=== PATIENT | male | born 1960 | race Caucasian/White ===

== ENCOUNTER 2018-12-15 11:00 | Day surgery (SDC) | payer BC, SELFPAY ==
--- NOTE | 2018-12-10 08:13 | EKG12_ITS ---
Test Reason : POST OP Blood Pressure : / mmHG Vent. Rate : 075 BPM Atrial Rate : 075 BPM P-R Int : 164 ms QRS Dur : 110 ms QT Int : 382 ms P-R-T Axes : 051 -09 019 degrees QTc Int : 426 ms Sinus rhythm with occasional Premature ventricular complexes Confirmed by GERMAIN NICHOLSON, SHAVON ([id number]), broach setter EZIO VARGAS ([id number]) on 12/18/2018 8:51:08 AM Referred By: Ofe Garsia Confirmed By:SHAVON GROVES MD
[2018-12-10 09:07] LABS: Anion Gap 5 (5-15); BUN 21 mg/dL (7-18); BUN/Creat Ratio 21.9 RATIO (10-20); Calcium,Total 8.6 mg/dL (8.5-10.1); Chloride 105 mmol/L (98-107); Creatinine, Serum 0.96 mg/dL (0.70-1.30); EST Glomerular Filtration Rate 85 mL/min (>60); Est Glom Filt Rate - Afr Amer 103 mL/min (>60); Glucose 143 mg/dL (74-106); Potassium 4.3 mmol/L (3.5-5.1); Sodium Level 137 mmol/L (136-145)
--- NOTE | 2018-12-15 10:36 | PCM.HP.BLA ---
History and Physical Date of Admission: 12/15/18 Roby Franklin 1960 CHIEF COMPLAINT: Umbilical Hernia Repair HPI: The patient is a 58 year old male presents with umbilical hernia. Has noted for years. Lately in the past few weeks, he has noted twinges of pain. Denies episode of incarceration. Denies previous hernia surgery. Denies GI/ obstructive symptoms. PAST MEDICAL HISTORY ? Diabetes (HCC) 10/26/20142013, prediabetic prior to that. ? Hypercholesterolemia Gets labs done through work ? PLANTAR Fasciitis ? Seborrheic dermatitis 10/11/2009 PAST SURGICAL HISTORY ? COLONOSCOP W/ OR W/O BRSH SPEC 04/18/15 Current Outpatient Prescriptions: sildenafil (REVATIO) 20 mg tablet Take 2-3 tablets by mouth once daily as needed. simvastatin (ZOCOR) 20 mg tablet take 1 tablet by mouth at bedtime metFORMIN (GLUCOPHAGE) 1,000 mg tablet take 1 tablet by mouth twice a day with food blood sugar diagnostic (i2i LogicTOUCH ULTRA TEST) test strip Test blood sugar(s) 1x daily. Dx: 250.00. Insulin: No aspirin, enteric coated (ASPIRIN, ENTERIC COATED) 81 mg EC tablet Take 1 tablet by mouth once daily. Lancets (ONE TOUCH DELICA) lancets Test blood sugar(s) 1x daily. Dx: 250.02. Insulin: No triamcinolone acetonide 0.1 % cream Apply 1 application to affected area once daily. Apply sparingly to area for rash/itching. ketoconazole 2 % TOPICAL shampoo Apply to affected area. Apply lather to affected skin for 2 to 3 minutes daily as needed. (1 bottle, not 1 ml) ALLERGIES: Patient has no known allergies. PERSONAL HISTORY: Social History Marital status: Social History Main Topics Smoking status: Never Smoker Smokeless tobacco: Never Used Alcohol use: Yes Comment: 2 beers a week FAMILY HISTORY ? Diabetes Mother ? Heart Father mi, angioplasty ? other (hnp neck [Other]) Sister ? Diabetes Brother NH, Stents placed 2010 ? Coronary Artery Disease Brother same as one with DM ? Hypertension Father same as brother with DM and CAD ? other (prostate cancer [Other]) Father 78+/- REVIEW OF SYSTEMS: General - denies fevers Cardiovascular - denies chest pain Pulmonary - denies coughing up blood Gastrointestinal - see above, denies hematemesis Neurological - denies seizures Genitourinary - denies blood in urine Hematological - denies spontaneous/prolonged bleeding Skin - denies nonhealing skin wounds Musculoskeletal - denies chronic joint/back pain Endocrine - has diabetes Psychological ? denies hallucinations PHYSICAL EXAMINATION: General: The patient is 58 year old male, well nourished, well hydrated in no acute distress. The patient is oriented to time, place, and person. VITALS: Blood pressure 130/78, pulse 72, weight 104.3 kg (230 lb). Ht: 5' 9.5 Body mass index is 32.54 kg/m?. Head ? Normocephalic. EOM intact with sclera clear and no icterus noted. Wearing glasses. Mouth with mucus membranes moist. Neck - supple with no jugular venous distention noted. Trachea is midline. No masses noted. Lungs ? clear to auscultation. Normal breath sounds. No rales/rhonchi/wheezing noted. No labored breathing noted, such as retractions. Heart ? normal S1 and S2 auscultated. No rubs/clicks/murmurs noted. Regular rate. Abdomen ? soft and benign. Rectus diastasis present, small reducible umbilical hernia present. Normal bowel sounds. No abdominal bruits noted. Extremities ? no calf tenderness noted. No pitting edema noted. Skin ? normal skin integrity. Neurological ? gait normal, no focal deficits noted. Psych ? calm and appropriate IMPRESSION: umbilical hernia - symptomatic PLAN: I have discussed the above with the patient. I have offered umbilical hernia repair, possible use of mesh I have explained the procedure to the patient. I have counseled the patient as to the risks of the procedure, including but not limited to: infection, bleeding, injury to any blood vessels/nerves, scar tissue, injury to bowel/bladder, intraabdominal abscess/bleeding, recurrence of hernia, wound infections, complications of anesthesia, etc. ? the patient understands. The patient wishes to proceed. I have answered all questions to the patient?s satisfaction and the patient has no further questions. . Diagnoses: (K42.9) Umbilical hernia without obstruction or gangrene (primary encounter diagnosis) (E66.09, Z68.32) Class 1 obesity due to excess calories without serious comorbidity with body mass index (BMI) of 32.0 to 32.9 in adult Return to Clinic: The patient is instructed to follow-up with me after the procedure and as per needed.
[2018-12-15 11:36] VITALS: BP 143/83; PULSE 65; RESP 16; TEMP 36.6; O2SAT 93; BMI 33.5
[2018-12-15 12:01] LABS: Bedside Glucose 143 mg/dL (70-110)
[2018-12-15] MEDS: Cefazolin 2 GM in 0.9% Normal Saline 100 ML IV (12:35)
--- NOTE | 2018-12-15 12:44 | OP.PN_ITS ---
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
--- NOTE | 2018-12-15 13:09 | PCM.OPRPT ---
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 Appropriate time out protocol was followed. He was then placed in the supine position. The patient was then placed under anesthesia. The abdomen was then prepped with a sterile surgical skin preparation. Sterile surgical drapes were placed. This skin and subcutaneous tissues were then widely infiltrated with the local anesthetic. A skin incision was then made with a 15 blade scalpel inferior to the umbilical dimple in a curvilinear fashion. It was carried down to the subcutaneous tissues using sharp dissection. Any hemorrhage was adequately controlled with electrocautery. Blunt dissection was done to separate the subcutaneous tissues from the umbilical hernia sac. The sac once freed of the subcutaneous tissues was then freed from the undersurface of the dermis of the umbilical skin. The sac was then freed up from the fascial surface. The fascial defect was then properly outlined. The fascial defect was then closed transversely with interrupted 0 prolene suture in an interrupted fashion. Hemostasis was controlled with electrocautery. The subdermis was reapproximated with interrupted 3-0 vicryl sutures. The skin incision was reapproximated with a running 4-0 Monocryl suture. Cavilon and steristrips were placed to reinforce the skin closure and a sterile opsite dressing was applied. The patient was brought from to the Recovery Room in stable condition. - Complications none noted - Admit VTE Documentation VTE Present on Admission: Yes VTE Mechan Device Prophylaxis: SCD's
--- NOTE | 2018-12-15 13:18 | PCM.DC.HER ---
Discharge Diet: No Restrictions Discharge Activity: Return to Normal Activity, May not drive while taking narcotic pain medications. Lifting Restrictions: no lifting/pushing/pulling greater than 20 pounds for 6 weeks Call your doctor if your incision/area has: Continuous Slow Oozing, Foul Smelling Discharge Call your doctor if you observe: Fever of 101 or Higher Additional Dressing/Incision Instructions:: Leave dressing in place. May get wet in the shower - do not scrub in area. Do not soak - no tub baths/swimming Additional Instructions: Recommended pain medication regimen - may take 600 mg ibuprofen then in three hours take 650 mg acetaminophen, then in three hours take 600 mg of ibuprofen, etc. for 2-3 days take narcotic pain medication for breakthrough pain and at night to help you sleep Allergies/Adverse Reactions: Allergies No Known Allergies Allergy (Verified 12/08/18 15:33) Medications to take at Discharge Aspirin [Children's Aspirin] 81 mg PO DAILY 12/08/18 Minocycline HCl [Minocin] 50 mg PO PRN PRN 12/08/18 RX: Metformin HCl 1,000 mg PO BID 12/08/18 Simvastatin [Zocor] 20 mg PO QHS 12/08/18 Oxycodone [Oxyir] 5 mg PO Q8H PRN PRN 5 Days #15 tab 12/15/18 The following prescriptions were given: Oxycodone [Oxyir] 5 mg PO Q8H PRN PRN 5 Days #15 tab PRN Reason: Mod-Severe Pain (4-10/10) Primary Care Physician: Peggy Arnett MD [Primary Care Provider] - Test Results: Test results from this visit will be discussed in further detail at your follow-up appointment, if applicable. Please Follow Up With: Ofe Garsia MD - call When: to be seen in 7-10 days, please call for date and time, thank you
[2018-12-15 13:20] VITALS: BP 128/84; BP 143/83; PULSE 78; RESP 16; TEMP 36.4; O2SAT 95
--- NOTE | 2018-12-15 13:21 | DCINST_ITS ---
Discharge Diet: No Restrictions Discharge Activity: Return to Normal Activity, May not drive while taking narcotic pain medications. Lifting Restrictions: no lifting/pushing/pulling greater than 20 pounds for 6 weeks Call your doctor if your incision/area has: Continuous Slow Oozing, Foul Smelling Discharge Call your doctor if you observe: Fever of 101 or Higher Additional Dressing/Incision Instructions:: Leave dressing in place. May get wet in the shower - do not scrub in area. Do not soak - no tub baths/swimming Additional Instructions: Recommended pain medication regimen - may take 600 mg ibuprofen then in three hours take 650 mg acetaminophen, then in three hours take 600 mg of ibuprofen, etc. for 2-3 days take narcotic pain medication for breakthrough pain and at night to help you sleep Allergies/Adverse Reactions: Allergies No Known Allergies Allergy (Verified 12/08/18 15:33) Medications to take at Discharge Aspirin [Children's Aspirin] 81 mg PO DAILY 12/08/18 Minocycline HCl [Minocin] 50 mg PO PRN PRN 12/08/18 RX: Metformin HCl 1,000 mg PO BID 12/08/18 Simvastatin [Zocor] 20 mg PO QHS 12/08/18 Oxycodone [Oxyir] 5 mg PO Q8H PRN PRN 5 Days #15 tab 12/15/18 The following prescriptions were given: Oxycodone [Oxyir] 5 mg PO Q8H PRN PRN 5 Days #15 tab PRN Reason: Mod-Severe Pain (4-10/10) Primary Care Physician: Peggy Arnett MD [Primary Care Provider] - Test Results: Test results from this visit will be discussed in further detail at your follow- up appointment, if applicable. Please Follow Up With: Ofe Garsia MD - call When: to be seen in 7-10 days, please call for date and time, thank you
[2018-12-15 13:25] VITALS: BP 126/98; BP 143/83; PULSE 78; RESP 16; O2SAT 96
[2018-12-15 13:30] VITALS: BP 141/93; BP 143/83; PULSE 76; RESP 16; O2SAT 96
[2018-12-15 13:35] VITALS: BP 132/98; BP 143/83; PULSE 76; RESP 16; TEMP 36.6; O2SAT 97
[2018-12-15] MEDS: oxyCODONE 5 MG Tablet PO (14:10)
[2018-12-15 15:13] VITALS: BP 143/83
--- OUTSIDE RECORDS SUMMARY | 2019-02-11 02:54 | XMS RPT_ITS ---
:1960 Author Organization OH[facility] Care Team Providers Name Role Phone DANIEL ARNETT Referring Unavailable DANIEL ARNETT Attending Unavailable DANIEL ARNETT Referring Unavailable DANIEL ARNETT Attending Unavailable OFE GARSIA Attending Unavailable OFE GARSIA Referring Unavailable Ofe Garsia Attending Unavailable Ofe Garsia Referring Unavailable Daniel Arnett Primary Care Unavailable PROBLEMS PROBLEMS DATE TYPE CONDITION / CODE ATTENDING STATUS SOURCE 02/03/2016 Active Hyperlipidemia, NA Active [facility] unspecified / [place] E78.5(ICD-10) Repository 03/15/2018 Active Type 2 diabetes NA Active [facility] mellitus without [place] complications / Repository E11.9(ICD-10) PROCEDURES PROCEDURES No Procedure Records FoundRESULTS RESULTS BASIC METABOLIC Collected: 12/10/2018 Status: F Source: ROBBIE PROFILE (BMP) 8:16 AM [facility] REPOSITORY Order Comment: Reason for Laboratory Test PREOP TYPE CODE TESTS RESULT OUT OF RANGE REFERENCE UNITS LAB L501.0100 74-106 mg/dL High GLU 143 Result Comment: Fasting Glucose result greater than or equal to 126 mg/dL suggests DIABETES MELLITUS per A.D.A. criteria. Please note revised GLUCOSE reference range effective 2017. LAB L501.1000 7-18 mg/dL High BUN 21 LAB L501.1100 0.70-1.30 mg/dL Normal CREAT,SERUM 0.96 Result Comment: The validity of the calculated GFR AND GFRAA in patients over 70 years has not been determined. Clinical correlation is essential. LAB L501.1110 >60 mL/min Normal EST GFR 85 Result Comment: Non- GFR Calc LAB L501.1115 >60 mL/min Normal EST GFR - AA 103 Result Comment: GFR Calc LAB L501.1300 10-20 RATIO High BUN/CRE 21.9 LAB L501.2200 8.5-10.1 mg/dL CA Normal 8.6 LAB L501.5300 136-145 mmol/L NA Normal 137 LAB L501.5600 3.5-5.1 mmol/L K Normal 4.3 LAB L501.5900 98-107 mmol/L CL Normal 105 LAB L501.6100 21.0-32.0 mmol/L Normal CO2 27.0 LAB L501.6200 5-15 Normal GAP 5 Performed By: #### L500.2500 #### [facility] [address] [place], [address] OBSOLETE Observed: 12/05/2018 Status: COMPLETED Source: [place] 12:00 AM [facility] REPOSITORY Refill (INTMWS) ALECIA FRANKLIN ([id number]) 1960 M Date Time Provider Department 12/05/18 DANIEL ARNETT INTMWS During your visit today, we recorded the following information about you: Reggie Borja RN 12/05/2018 1:00 PM Signed Patient has been identified by name and date of : Yes Pharmacy phones for refill(s): Pending Prescriptions Disp Refills METFORMIN 1,000 MG TABLET 180 tablet 3 Sig: Take 1 tablet by mouth twice daily with meals. REYES: No Date of last office visit with pcp: 09-23-18. Next appt; 06-15-19 Last 2 Encounter Wt Readings: Date: Wt: 10/06/2018 104.3 kg (230 lb) 09/23/2018 103.4 kg (228 lb) Previous labs/tests for medication: Diabetes: Hemoglobin A1C (%) Date Value 09/20/2018 7.1 03/15/2018 6.7 Please advise. Thank you. Reggie Arnett MD 12/06/2018 12:16 PM Signed ok Allergies As of Date: 12/05/2018 (No Known Allergies) Date Reviewed: 10/10/2018 Reviewed by: Ofe Garsia - Fully Assessed Reason for Visit: Refill Request [94] Order(s):metFORMIN (GLUCOPHAGE) 1,000 mg tabletTake 1 tablet by mouth twice daily with meals.Disp: 180 tabletRfl: 3 Prescriptions as of 12/05/2018 Sig: METFORMIN 1,000 MG TABLET Take 1 tablet by mouth twice * SILDENAFIL (ANTIHYPERTENSIVE)* Take 2-3 tablets by mouth onc* SIMVASTATIN 20 MG TABLET take 1 tablet by mouth at bed* BLOOD SUGAR DIAGNOSTIC STRIPS Test blood sugar(s) 1x daily.* ASPIRIN 81 MG TABLET,DELAYED * Take 1 tablet by mouth once d* LANCETS Test blood sugar(s) 1x daily.* TRIAMCINOLONE ACETONIDE 0.1 %* Apply 1 application to affect* * KETOCONAZOLE 2 % SHAMPOO Apply to affected area. Appl* Problem List As Of Date 12/05/2018 Noted Resolved CALCANEAL SPUR [M77.30] INVALID FOR* Seborrheic Dermatitis [L21.9] INVALID FOR* Diabetes (HCC) [E11.9] INVALID FOR* More... Hyperlipidemia with target LDL less than 70 [E7*INVALID FOR* More... Prehypertension [R03.0] INVALID FOR* More... Obesity (BMI 30-39.9) [E66.9] INVALID FOR* More... Erectile dysfunction [N52.9] INVALID FOR* Prescriptions ordered this encounter Disp Refills Start End METFORMIN 1,000 MG TABLET 180 * 3 12/06/2018 Route: ORAL Sig: Take 1 tablet by mouth twice daily with meals. Medications Discontinued During This Encounter metFORMIN (GLUCOPHAGE) 1,000 mg tabl* 180 * 3 12/10/2017 12/06/2018 Sig: take 1 tablet by mouth twice a day with food Disc: Reason for discontinue is not on file. Encounter Status:Closed by DANIEL ARNETT MD on 12/06/18 CNCO Observed: 11/25/2018 Status: COMPLETED Source: [place] 12:00 AM [facility] REPOSITORY Letter Text Alecia Franklin [address] [facility] [address] 11/25/2018 F #: [id number] Dear , Due to a change in the provider's schedule it has been necessary to reschedule your Appointment. Your original appointment was scheduled for 04/03/19 at 8 AM with Daniel Arnett M.D. Your new appointment is now scheduled on 06/15/19 at 220 PM with Daniel Arnett M.D. If this new appointment is not convenient for you, please contact our office at [phone]. Thank you for choosing the [facility] as your Healthcare Provider . Sincerely, Internal Medicine Appointment Office PROGRESS Observed: 10/06/2018 Status: COMPLETED Source: [place] 4:51 PM [facility] REPOSITORY HNO ID: [id number] Author: Ofe Garsia Service: (none) Author Type: Physician Type: Progress Notes Filed: 10/10/2018 12:19 PM Note Text: Alecia Lu Tr 1960 REFERRING PHYSICIAN: Ofe Garsia MD CHIEF COMPLAINT: Umbilical Hernia Repair-2 HPI: The patient is a 58 year old male presents with umbilical hernia. Has noted for years. Lately in the past few weeks, he has noted twinges of pain. Denies episode of incarceration. Denies previous hernia surgery. Denies GI/ obstructive symptoms. PAST MEDICAL HISTORY Diagnosis Date - Diabetes (HCC) 10/26/20142013, prediabetic prior to that. - Hypercholesterolemia Gets labs done through work - PLANTAR Fasciitis - Seborrheic dermatitis 10/11/2009 PAST SURGICAL HISTORY Procedure Laterality Date - COLONOSCOP W/ OR W/O [facility] SPEC 04/18/15 Colonoscopy - NONE Current Outpatient Prescriptions: sildenafil (REVATIO) 20 mg tablet Take 2-3 tablets by mouth once daily as needed. simvastatin (ZOCOR) 20 mg tablet take 1 tablet by mouth at bedtime metFORMIN (GLUCOPHAGE) 1,000 mg tablet take 1 tablet by mouth twice a day with food blood sugar diagnostic (AuthyTOUCH ULTRA TEST) test strip Test blood sugar(s) 1x daily. Dx: 250.00. Insulin: No aspirin, enteric coated (ASPIRIN, ENTERIC COATED) 81 mg EC tablet Take 1 tablet by mouth once daily. Lancets (ONE TOUCH DELICA) lancets Test blood sugar(s) 1x daily. Dx: 250.02. Insulin: No triamcinolone acetonide 0.1 % cream Apply 1 application to affected area once daily. Apply sparingly to area for rash/itching. ketoconazole 2 % TOPICAL shampoo Apply to affected area. Apply lather to affected skin for 2 to 3 minutes daily as needed. (1 bottle, not 1 ml) ALLERGIES: Patient has no known allergies. PERSONAL HISTORY: Social History Marital status: Social History Main Topics Smoking status: Never Smoker Smokeless tobacco: Never Used Alcohol use: Yes Comment: 2 beers a week FAMILY HISTORY Problem Relation Age of Onset - Diabetes Mother - Heart Father mi, angioplasty - other (hnp neck [Other]) Sister - Diabetes Brother [place], Stents placed 2010 - Coronary Artery Disease Brother same as one with DM - Hypertension Father same as brother with DM and CAD - other (prostate cancer [Other]) Father 78+/- REVIEW OF SYSTEMS: General - denies fevers Cardiovascular - denies chest pain Pulmonary - denies coughing up blood Gastrointestinal - see above, denies hematemesis Neurological - denies seizures Genitourinary - denies blood in urine Hematological - denies spontaneous/prolonged bleeding Skin - denies nonhealing skin wounds Musculoskeletal - denies chronic joint/back pain Endocrine - has diabetes Psychological ? denies hallucinations PHYSICAL EXAMINATION: General: The patient is 58 year old male, well nourished, well hydrated in no acute distress. The patient is oriented to time, place, and person. VITALS: Blood pressure 130/78, pulse 72, weight 104.3 kg (230 lb). Ht: 5' 9.5 Body mass index is 32.54 kg/m?. Head ? Normocephalic. EOM intact with sclera clear and no icterus noted. Wearing glasses. Mouth with mucus membranes moist. Neck - supple with no jugular venous distention noted. Trachea is midline. No masses noted. Lungs ? clear to auscultation. Normal breath sounds. No rales/rhonchi/wheezing noted. No labored breathing noted, such as retractions. Heart ? normal S1 and S2 auscultated. No rubs/clicks/murmurs noted. Regular rate. Abdomen ? soft and benign. Rectus diastasis present, small reducible umbilical hernia present. Normal bowel sounds. No abdominal bruits noted. Extremities ? no calf tenderness noted. No pitting edema noted. Skin ? normal skin integrity. Neurological ? gait normal, no focal deficits noted. Psych ? calm and appropriate Assessment IMPRESSION: umbilical hernia - symptomatic PLAN: I have discussed the above with the patient. I have offered umbilical hernia repair, possible use of mesh I have explained the procedure to the patient. I have counseled the patient as to the risks of the procedure, including but not limited to: infection, bleeding, injury to any blood vessels/nerves, scar tissue, injury to bowel/bladder, intraabdominal abscess/bleeding, recurrence of hernia, wound infections, complications of anesthesia, etc. ? the patient understands. The patient wishes to proceed. He wishes for surgery to be done at [facility]. Wants surgery in mid Nov 2018. I have answered all questions to the patient?s satisfaction and the patient has no further questions. . Diagnoses: (K42.9) Umbilical hernia without obstruction or gangrene (primary encounter diagnosis) (E66.09, Z68.32) Class 1 obesity due to excess calories without serious comorbidity with body mass index (BMI) of 32.0 to 32.9 in adult Return to Clinic: The patient is instructed to follow-up with me after the procedure and as per needed. Ofe Garsia MD CNOV Observed: 10/06/2018 Status: COMPLETED Source: [place] 3:10 PM [facility] REPOSITORY Office Visit (ISACS) ALECIA FRANKLIN ([id number]) 1960 M Date Time Provider Department 10/06/18 3:10 PM OFE GARSIA During your visit today, we recorded the following information about you: Pulse Blood pressure Weight 72/minute 130/78 104.3 kg Ofe Garsia MD 10/10/2018 12:19 PM Signed Alecia Franklin 1960 REFERRING PHYSICIAN: Ofe Garsia MD CHIEF COMPLAINT: Umbilical Hernia Repair-2 HPI: The patient is a 58 year old male presents with umbilical hernia. Has noted for years. Lately in the past few weeks, he has noted twinges of pain. Denies episode of incarceration. Denies previous hernia surgery. Denies GI/ obstructive symptoms. PAST MEDICAL HISTORY Diagnosis Date - Diabetes (HCC) 10/26/20142013, prediabetic prior to that. - Hypercholesterolemia Gets labs done through work - PLANTAR Fasciitis - Seborrheic dermatitis 10/11/2009 PAST SURGICAL HISTORY Procedure Laterality Date - COLONOSCOP W/ OR W/O [facility] SPEC 04/18/15 Colonoscopy - NONE Current Outpatient Prescriptions: sildenafil (REVATIO) 20 mg tablet Take 2-3 tablets by mouth once daily as needed. simvastatin (ZOCOR) 20 mg tablet take 1 tablet by mouth at bedtime metFORMIN (GLUCOPHAGE) 1,000 mg tablet take 1 tablet by mouth twice a day with food blood sugar diagnostic (ONETOUCH ULTRA TEST) test strip Test blood sugar(s) 1x daily. Dx: 250.00. Insulin: No aspirin, enteric coated (ASPIRIN, ENTERIC COATED) 81 mg EC tablet Take 1 tablet by mouth once daily. Lancets (ONE TOUCH DELICA) lancets Test blood sugar(s) 1x daily. Dx: 250.02. Insulin: No triamcinolone acetonide 0.1 % cream Apply 1 application to affected area once daily. Apply sparingly to area for rash/itching. ketoconazole 2 % TOPICAL shampoo Apply to affected area. Apply lather to affected skin for 2 to 3 minutes daily as needed. (1 bottle, not 1 ml) ALLERGIES: Patient has no known allergies. PERSONAL HISTORY: Social History Marital status: Social History Main Topics Smoking status: Never Smoker Smokeless tobacco: Never Used Alcohol use: Yes Comment: 2 beers a week FAMILY HISTORY Problem Relation Age of Onset - Diabetes Mother - Heart Father mi, angioplasty - other (hnp neck [Other]) Sister - Diabetes Brother [place], Stents placed 2010 - Coronary Artery Disease Brother same as one with DM - Hypertension Father same as brother with DM and CAD - other (prostate cancer [Other]) Father 78+/- REVIEW OF SYSTEMS: General - denies fevers Cardiovascular - denies chest pain Pulmonary - denies coughing up blood Gastrointestinal - see above, denies hematemesis Neurological - denies seizures Genitourinary - denies blood in urine Hematological - denies spontaneous/prolonged bleeding Skin - denies nonhealing skin wounds Musculoskeletal - denies chronic joint/back pain Endocrine - has diabetes Psychological ? denies hallucinations PHYSICAL EXAMINATION: General: The patient is 58 year old male, well nourished, well hydrated in no acute distress. The patient is oriented to time, place, and person. VITALS: Blood pressure 130/78, pulse 72, weight 104.3 kg (230 lb). Ht: 5' 9.5 Body mass index is 32.54 kg/m?. Head ? Normocephalic. EOM intact with sclera clear and no icterus noted. Wearing glasses. Mouth with mucus membranes moist. Neck - supple with no jugular venous distention noted. Trachea is midline. No masses noted. Lungs ? clear to auscultation. Normal breath sounds. No rales/rhonchi/wheezing noted. No labored breathing noted, such as retractions. Heart ? normal S1 and S2 auscultated. No rubs/clicks/murmurs noted. Regular rate. Abdomen ? soft and benign. Rectus diastasis present, small reducible umbilical hernia present. Normal bowel sounds. No abdominal bruits noted. Extremities ? no calf tenderness noted. No pitting edema noted. Skin ? normal skin integrity. Neurological ? gait normal, no focal deficits noted. Psych ? calm and appropriate Assessment IMPRESSION: umbilical hernia - symptomatic PLAN: I have discussed the above with the patient. I have offered umbilical hernia repair, possible use of mesh I have explained the procedure to the patient. I have counseled the patient as to the risks of the procedure, including but not limited to: infection, bleeding, injury to any blood vessels/nerves, scar tissue, injury to bowel/bladder, intraabdominal abscess/bleeding, recurrence of hernia, wound infections, complications of anesthesia, etc. ? the patient understands. The patient wishes to proceed. He wishes for surgery to be done at [facility]. Wants surgery in mid Nov 2018. I have answered all questions to the patient?s satisfaction and the patient has no further questions. . Diagnoses: (K42.9) Umbilical hernia without obstruction or gangrene (primary encounter diagnosis) (E66.09, Z68.32) Class 1 obesity due to excess calories without serious comorbidity with body mass index (BMI) of 32.0 to 32.9 in adult Return to Clinic: The patient is instructed to follow-up with me after the procedure and as per needed. Ofe Garsia MD Referring Provider: OFE GARSIA [[id number]] Allergies As of Date: 10/06/2018 (No Known Allergies) Date Reviewed: 10/06/2018 Reviewed by: Ofe Garsia - Fully Assessed Reason for Visit: Umbilical Hernia Repair-2 [315] Primary Visit Diagnosis:Umbilical hernia without obstruction or gangrene [K42.9] Other Visit Diagnosis:Class 1 obesity due to excess calories without serious comorbidity with body mass index (BMI) of 32.0 to 32.9 in adult [E66.09, Z68.32] Prescriptions as of 10/06/2018 Sig: SILDENAFIL (ANTIHYPERTENSIVE)* Take 2-3 tablets by mouth onc* SIMVASTATIN 20 MG TABLET take 1 tablet by mouth at bed* METFORMIN 1,000 MG TABLET take 1 tablet by mouth twice * BLOOD SUGAR DIAGNOSTIC STRIPS Test blood sugar(s) 1x daily.* ASPIRIN 81 MG TABLET,DELAYED * Take 1 tablet by mouth once d* LANCETS Test blood sugar(s) 1x daily.* TRIAMCINOLONE ACETONIDE 0.1 %* Apply 1 application to affect* * KETOCONAZOLE 2 % SHAMPOO Apply to affected area. Appl* Problem List As Of Date 10/06/2018 Noted Resolved CALCANEAL SPUR [M77.30] INVALID FOR* Seborrheic Dermatitis [L21.9] INVALID FOR* Diabetes (HCC) [E11.9] INVALID FOR* More... Hyperlipidemia with target LDL less than 70 [E7*INVALID FOR* More... Prehypertension [R03.0] INVALID FOR* More... Obesity (BMI 30-39.9) [E66.9] INVALID FOR* More... Erectile dysfunction [N52.9] INVALID FOR* Letter Text Encounter Status:Closed by MD OFE GARSIA on 10/10/18 PROGRESS Observed: 09/23/2018 Status: COMPLETED Source: [place] [address]:03 AM [facility] REPOSITORY HNO ID: [id number] Author: Daniel Arnett Service: (none) Author Type: Physician Type: Progress Notes Filed: 10/04/2018 11:40 PM Note Text: Patient presents with: Recheck: Follow up SUBJECTIVE: Alecia Franklin is a 58 year old year old gentleman here today for 6 month follow up appointment for review of medical conditions. Wellness form signed. Umbilical hernia causing discomfort. Stinging discomfort more. Sticking out more than before.Bothering him more the past 3 weeks. No signs of obstruction. Not exercising the past month after golf season. Denies symptoms of excessive thirst or increased frequency of urination, chest pain or dyspnea , numbness, tingling or pain in extremities, new or unusual visual symptoms and low sugar/hypoglycemic reactions. PAST MEDICAL HISTORY Diagnosis Date - Diabetes (HCC) 10/26/20142013, prediabetic prior to that. - Hypercholesterolemia Gets labs done through work - PLANTAR Fasciitis - Seborrheic dermatitis 10/11/2009 Current Outpatient Prescriptions: sildenafil, antihypertensive, (REVATIO) 20 mg tablet Take 2-3 tablets by mouth once daily as needed. simvastatin (ZOCOR) 20 mg tablet take 1 tablet by mouth at bedtime metFORMIN (GLUCOPHAGE) 1,000 mg tablet take 1 tablet by mouth twice a day with food blood sugar diagnostic (ONETOUCH ULTRA TEST) test strip Test blood sugar(s) 1x daily. Dx: 250.00. Insulin: No aspirin, enteric coated (ASPIRIN, ENTERIC COATED) 81 mg EC tablet Take 1 tablet by mouth once daily. Lancets (ONE TOUCH DELICA) lancets Test blood sugar(s) 1x daily. Dx: 250.02. Insulin: No triamcinolone acetonide 0.1 % cream Apply 1 application to affected area once daily. Apply sparingly to area for rash/itching. ketoconazole 2 % TOPICAL shampoo Apply to affected area. Apply lather to affected skin for 2 to 3 minutes daily as needed. (1 bottle, not 1 ml) No current facility-administered medications for this visit. OBJECTIVE: BP 138/86 Pulse 80 Resp 16 Wt 103.4 kg (228 lb) BMI 32.25 kg/m? Patient is alert, oriented times 3, no apparent distress, affect is bright, reactive. Last 5 Encounter BP Readings: Date: BP: 09/23/2018 138/86 03/18/2018 132/72 09/25/2017 128/80 03/22/2017 120/88 12/18/2016 130/80 Last 5 Encounter Wt Readings: Date: Wt: 09/23/2018 103.4 kg (228 lb) 03/18/2018 104.3 kg (230 lb) 09/25/2017 102.5 kg (226 lb) 03/22/2017 103.9 kg (229 lb) 12/18/2016 111.1 kg (245 lb) 09/23/18 0846 09/23/18 0927 BP: 138/86 128/78 Pulse: 80 Resp: 16 Weight: 103.4 kg (228 lb) Heart: Regular rate, rhythm, no murmurs, gallops, rubs. Lungs: Clear to auscultation, bilaterally, breathing non labored. Ext: No cyanosis, clubbing, or edema. Component Latest Ref Rng AND Units 09/21/2017 03/15/2018 09/20/2018 Protein, Total 6.3 - 8.0 g/dL 6.9 Albumin 3.9 - 4.9 g/dL 4.3 Calcium 8.5 - 10.2 mg/dL 9.8 9.1 9.6 Bilirubin, Total 0.2 - 1.3 mg/dL 0.5 Alkaline Phosphatase 36 - 108 U/L 80 AST 14 - 40 U/L 28 Glucose 74 - 99 mg/dL 111 (H) 161 (H) 142 (H) BUN 9 - 24 mg/dL 20 22 21 Creatinine 0.73 - 1.22 mg/dL 1.03 0.92 1.02 Sodium 136 - 144 mmol/L 139 138 140 Potassium 3.7 - 5.1 mmol/L 4.4 4.8 4.8 Chloride 97 - 105 mmol/L 100 101 102 CO2 22 - 30 mmol/L 28 27 26 Anion Gap 9 - 18 mmol/L 11 10 12 ALT 10 - 54 U/L 31 eGFR- >60 >60 >60 eGFR-All Other Races . >60 >60 >60 Triglyceride <150 mg/dL 120 166 (H) 146 Cholesterol, Total <200 mg/dL 147 165 151 HDL Cholesterol >39 mg/dL 38 (L) 38 (L) 36 (L) VLDL Cholesterol <30 mg/dL 24 33 (H) 29 LDL Cholesterol <100 mg/dL 85 94 86 Fasting Time hrs 12 12 12 TC:HDL Ratio <5.10 3.87 4.34 4.19 LDL:HDL Ratio <2.54 2.24 2.47 2.39 Non HDL Cholesterol <130 mg/dL 109 127 115 Creatinine, Ur Random (UCRR) 20 - 300 mg/dL 99.0 Albumin, Urine Random 0.0 - 23.0 mg/L 15.4 Albumin/Creat Ratio 0 - 30 mg/g 16 Hemoglobin A1C 4.3 - 5.6 % 6.5 (H) 6.7 (H) 7.1 (H) Estimated Average Glucose mg/dL 140 146 157 ASSESSMENT AND PLAN: Encounter Diagnosis ICD-10-CM 1. Type 2 diabetes mellitus without complication, without long-term current use of insulin (HCC) E11.9 HGB A1C COMP METABOLIC PANEL ALBUMIN/CREAT RATIO RND UR 2. Umbilical hernia without obstruction and without gangrene K42.9 CONSULT TO GENERAL SURGERY increased size and discomfort the past 3 weeks 3. Prehypertension R03.0 4. Hyperlipidemia with target LDL less than 70 E78.5 LIPID PANEL BASIC 5. Obesity (BMI 30-39.9) E66.9 6. Erectile dysfunction, unspecified erectile dysfunction type N52.9 sildenafil (REVATIO) 20 mg tablet Above issues addressed with patient. Patient involved in shared decision making for management of medical issues. History and medications reviewed. Epic updated as needed Refills taken care of and meds adjusted as indicated after reviewed history, exam and labs. Health Maintenance reviewed. Updated record and/or ordered tests as recorded. Encouraged on efforts at healthy diet and regular exercise and adequate sleep. Needs to keep working on diet and exercise with lifestyle changes for effective weight loss as well as control of DM, and control of BP and lipids. HgA1C creeping up--not bad in 7 range but used to be <7. Weight stable to starting to go down--needs to improve diet and exercise. Referred to general surgery for evaluation of umbilical hernia as discussed. Monitor for signs and symptoms of incarcerated hernia as discussed. Ideally should lose weight before has hernia repair as indicated to improve outcome and prevent recurrent hernia. BP improved on recheck but discussed current goals for BP control. Will consider medication for renal protection as well as better BP control if not able to improve with diet and exercise. Able to afford Revatio pills and take enough for treating ED. The majority of the visit was spent counseling and/or coordinating care for the patient. [id number] time was at least 25 minutes. Daniel Arnett MD CNOV Observed: 09/23/2018 Status: COMPLETED Source: [place] 8:40 AM [facility] REPOSITORY Office Visit (INTMWS) TRALECIA GILL ([id number]) 1960 M Date Time Provider Department 09/23/18 8:40 AM DANIEL ARNETT INTMWS During your visit today, we recorded the following information about you: Pulse Respiration Blood pressure Weight 80/minute 16/minute 128/78 103.4 kg Daniel Arnett MD 10/04/2018 11:40 PM Signed Patient presents with: Recheck: Follow up SUBJECTIVE: Alecia Franklin is a 58 year old year old gentleman here today for 6 month follow up appointment for review of medical conditions. Wellness form signed. Umbilical hernia causing discomfort. Stinging discomfort more. Sticking out more than before.Bothering him more the past 3 weeks. No signs of obstruction. Not exercising the past month after golf season. Denies symptoms of excessive thirst or increased frequency of urination, chest pain or dyspnea , numbness, tingling or pain in extremities, new or unusual visual symptoms and low sugar/hypoglycemic reactions. PAST MEDICAL HISTORY Diagnosis Date - Diabetes (HCC) 10/26/20142013, prediabetic prior to that. - Hypercholesterolemia Gets labs done through work - PLANTAR Fasciitis - Seborrheic dermatitis 10/11/2009 Current Outpatient Prescriptions: sildenafil, antihypertensive, (REVATIO) 20 mg tablet Take 2-3 tablets by mouth once daily as needed. simvastatin (ZOCOR) 20 mg tablet take 1 tablet by mouth at bedtime metFORMIN (GLUCOPHAGE) 1,000 mg tablet take 1 tablet by mouth twice a day with food blood sugar diagnostic (PixonicUCH ULTRA TEST) test strip Test blood sugar(s) 1x daily. Dx: 250.00. Insulin: No aspirin, enteric coated (ASPIRIN, ENTERIC COATED) 81 mg EC tablet Take 1 tablet by mouth once daily. Lancets (ONE TOUCH DELICA) lancets Test blood sugar(s) 1x daily. Dx: 250.02. Insulin: No triamcinolone acetonide 0.1 % cream Apply 1 application to affected area once daily. Apply sparingly to area for rash/itching. ketoconazole 2 % TOPICAL shampoo Apply to affected area. Apply lather to affected skin for 2 to 3 minutes daily as needed. (1 bottle, not 1 ml) No current facility-administered medications for this visit. OBJECTIVE: BP 138/86 Pulse 80 Resp 16 Wt 103.4 kg (228 lb) BMI 32.25 kg/m? Patient is alert, oriented times 3, no apparent distress, affect is bright, reactive. Last 5 Encounter BP Readings: Date: BP: 09/23/2018 138/86 03/18/2018 132/72 09/25/2017 128/80 03/22/2017 120/88 12/18/2016 130/80 Last 5 Encounter Wt Readings: Date: Wt: 09/23/2018 103.4 kg (228 lb) 03/18/2018 104.3 kg (230 lb) 09/25/2017 102.5 kg (226 lb) 03/22/2017 103.9 kg (229 lb) 12/18/2016 111.1 kg (245 lb) 09/23/18 0846 09/23/18 0927 BP: 138/86 128/78 Pulse: 80 Resp: 16 Weight: 103.4 kg (228 lb) Heart: Regular rate, rhythm, no murmurs, gallops, rubs. Lungs: Clear to auscultation, bilaterally, breathing non labored. Ext: No cyanosis, clubbing, or edema. Component Latest Ref Rng AND Units 09/21/2017 03/15/2018 09/20/2018 Protein, Total 6.3 - 8.0 g/dL 6.9 Albumin 3.9 - 4.9 g/dL 4.3 Calcium 8.5 - 10.2 mg/dL 9.8 9.1 9.6 Bilirubin, Total 0.2 - 1.3 mg/dL 0.5 Alkaline Phosphatase 36 - 108 U/L 80 AST 14 - 40 U/L 28 Glucose 74 - 99 mg/dL 111 (H) 161 (H) 142 (H) BUN 9 - 24 mg/dL 20 22 21 Creatinine 0.73 - 1.22 mg/dL 1.03 0.92 1.02 Sodium 136 - 144 mmol/L 139 138 140 Potassium 3.7 - 5.1 mmol/L 4.4 4.8 4.8 Chloride 97 - 105 mmol/L 100 101 102 CO2 22 - 30 mmol/L 28 27 26 Anion Gap 9 - 18 mmol/L 11 10 12 ALT 10 - 54 U/L 31 eGFR- >60 >60 >60 eGFR-All Other Races . >60 >60 >60 Triglyceride <150 mg/dL 120 166 (H) 146 Cholesterol, Total <200 mg/dL 147 165 151 HDL Cholesterol >39 mg/dL 38 (L) 38 (L) 36 (L) VLDL Cholesterol <30 mg/dL 24 33 (H) 29 LDL Cholesterol <100 mg/dL 85 94 86 Fasting Time hrs 12 12 12 TC:HDL Ratio <5.10 3.87 4.34 4.19 LDL:HDL Ratio <2.54 2.24 2.47 2.39 Non HDL Cholesterol <130 mg/dL 109 127 115 Creatinine, Ur Random (UCRR) 20 - 300 mg/dL 99.0 Albumin, Urine Random 0.0 - 23.0 mg/L 15.4 Albumin/Creat Ratio 0 - 30 mg/g 16 Hemoglobin A1C 4.3 - 5.6 % 6.5 (H) 6.7 (H) 7.1 (H) Estimated Average Glucose mg/dL 140 146 157 ASSESSMENT AND PLAN: Encounter Diagnosis ICD-10-CM 1. Type 2 diabetes mellitus without complication, without long-term current use of insulin (HCC) E11.9 HGB A1C COMP METABOLIC PANEL ALBUMIN/CREAT RATIO RND UR 2. Umbilical hernia without obstruction and without gangrene K42.9 CONSULT TO GENERAL SURGERY increased size and discomfort the past 3 weeks 3. Prehypertension R03.0 4. Hyperlipidemia with target LDL less than 70 E78.5 LIPID PANEL BASIC 5. Obesity (BMI 30-39.9) E66.9 6. Erectile dysfunction, unspecified erectile dysfunction type N52.9 sildenafil (REVATIO) 20 mg tablet Above issues addressed with patient. Patient involved in shared decision making for management of medical issues. History and medications reviewed. Epic updated as needed Refills taken care of and meds adjusted as indicated after reviewed history, exam and labs. Health Maintenance reviewed. Updated record and/or ordered tests as recorded. Encouraged on efforts at healthy diet and regular exercise and adequate sleep. Needs to keep working on diet and exercise with lifestyle changes for effective weight loss as well as control of DM, and control of BP and lipids. HgA1C creeping up--not bad in 7 range but used to be <7. Weight stable to starting to go down--needs to improve diet and exercise. Referred to general surgery for evaluation of umbilical hernia as discussed. Monitor for signs and symptoms of incarcerated hernia as discussed. Ideally should lose weight before has hernia repair as indicated to improve outcome and prevent recurrent hernia. BP improved on recheck but discussed current goals for BP control. Will consider medication for renal protection as well as better BP control if not able to improve with diet and exercise. Able to afford Revatio pills and take enough for treating ED. The majority of the visit was spent counseling and/or coordinating care for the patient. [id number] time was at least 25 minutes. Daniel Arnett MD Referring Provider: SELF [200] Allergies As of Date: 09/23/2018 (No Known Allergies) Date Reviewed: 09/23/2018 Reviewed by: Jennifer Croft LPN - Fully Assessed Reason for Visit: Recheck [92] Cmt: Follow up Primary Visit Diagnosis:Type 2 diabetes mellitus without complication, without long-term current use of insulin (HCC) [E11.9] Other Visit Diagnoses:Umbilical hernia without obstruction and without gangrene [K42.9] Comment:increased size and discomfort the past 3 weeks Prehypertension [R03.0] Hyperlipidemia with target LDL less than 70 [E78.5] Obesity (BMI 30-39.9) [E66.9] Erectile dysfunction, unspecified erectile dysfunction type [N52.9] Order(s):CONSULT TO GENERAL SURGERY [3765] Order #: [id number]: 1 HGB A1C [BSBJV0E] Order #: [id number] FUTURE COMP METABOLIC PANEL [SQCMP] Order #: [id number] FUTURE LIPID PANEL BASIC [SQLIPB] Order #: [id number] FUTURE ALBUMIN/CREAT RATIO RND UR [SQUACR] Order #: [id number] FUTURE sildenafil (REVATIO) 20 mg tabletTake 2-3 tablets by mouth once daily as needed.Disp: 20 tabletRfl: 1 Prescriptions as of 09/23/2018 Sig: SILDENAFIL (ANTIHYPERTENSIVE)* Take 2-3 tablets by mouth onc* SIMVASTATIN 20 MG TABLET take 1 tablet by mouth at bed* METFORMIN 1,000 MG TABLET take 1 tablet by mouth twice * BLOOD SUGAR DIAGNOSTIC STRIPS Test blood sugar(s) 1x daily.* ASPIRIN 81 MG TABLET,DELAYED * Take 1 tablet by mouth once d* LANCETS Test blood sugar(s) 1x daily.* TRIAMCINOLONE ACETONIDE 0.1 %* Apply 1 application to affect* * KETOCONAZOLE 2 % SHAMPOO Apply to affected area. Appl* Problem List As Of Date 09/23/2018 Noted Resolved CALCANEAL SPUR [M77.30] INVALID FOR* Seborrheic Dermatitis [L21.9] INVALID FOR* Diabetes (HCC) [E11.9] INVALID FOR* More... Hyperlipidemia with target LDL less than 70 [E7*INVALID FOR* More... Prehypertension [R03.0] INVALID FOR* More... Obesity (BMI 30-39.9) [E66.9] INVALID FOR* More... Erectile dysfunction [N52.9] INVALID FOR* Prescriptions ordered this encounter Disp Refills Start End SILDENAFIL (ANTIHYPERTENSIVE) 20 MG * 20 t* 1 09/23/2018 Route: ORAL Sig: Take 2-3 tablets by mouth once daily as needed. Medications Discontinued During This Encounter sildenafil, antihypertensive, (REVAT* 20 t* 1 03/18/2018 09/23/2018 Route: ORAL Sig: Take 2-3 tablets by mouth once daily as needed. Disc: Reason for discontinue is not on file. Disposition: Return in about 6 months (around 03/23/2019) for 6 months follow up. Follow-up and Disposition History Recorded Encounter Status:Closed by DANIEL ARNETT MD on 10/04/18 BASIC METABOLIC PANL Collected: 09/20/2018 Status: F Source: [place] 8:01 AM [facility] REPOSITORY TYPE CODE TESTS RESULT OUT OF REFERENCE UNITS RANGE LAB GLU 74-99 mg/dL High Glucose 142 Result Comment: The [place] Diabetes Association (ADA) provides guidance for cutoff values for fasting glucose and random glucose. The ADA defines fasting as no caloric intake for at least 8 hours. Fas ting plasma glucose results between 100 to 125 mg/dL indicate increased risk for diabetes (prediabetes). Fasting plasma glucose results greater than or equal to 126 mg/dL meet the criteria for diagnosis of diabetes. In the absence of unequivocal hyperglycemia, results should be confirmed by repeat testing. In a patient with classic symptoms of hyperglycemia or hyperglycemic crisis, random plasma glucose results greater than or equal to 200 mg/dL meet the criteria for diagnosis of diabetes. Reference: Standards of Medical Care in Diabetes 2016, [place] Diabetes Association. Diabetes Care. 2016.39(Suppl 1). LAB BUN 9-24 mg/dL BUN 21 LAB CRET 0.73-1.22 mg/dL Creatinine 1.02 LAB NA 136-144 mmol/L Sodium 140 LAB K 3.7-5.1 mmol/L Potassium 4.8 LAB CL 97-105 mmol/L Chloride 102 LAB CO2 22-30 mmol/L CO2 26 LAB AGAP 9-18 mmol/L Anion Gap 12 LAB CA 8.5-10.2 mg/dL Calcium, Total 9.6 LAB GFRAA eGFR- Amer. >60 LAB GFRNAA . eGFR-All Other Races >60 Result Comment: eGFR (Estimated GFR) Units of measure: mL/min/1.73 meters squared eGFR is derived from the reexpressed MDRD Study equation using the following parameters: serum creatinine, age, gender and race. The creatinine assay has been calibrated to be traceable to IDMS. An eGFR <60 mL/min/1.73m2 for >3 months is consistent with chronic kidney disease. Refer to KDOQI guidelines for clinical interpretation. In patients with unstable renal function, e.g. those with acute kidney injury, the eGFR may not accurately reflect actual GFR. Performed By: #### BMP, LIPB, HBA1C #### [facility] [address] [place] [address] LIPID PANEL, BASIC Collected: 09/20/2018 Status: F Source: [place] 8:01 AM [facility] REPOSITORY TYPE CODE TESTS RESULT OUT OF REFERENCE UNITS RANGE LAB CHOL <200 mg/dL Cholesterol 151 Result Comment: <200 mg/dL, Desirable 200-239 mg/dL, Borderline high >239 mg/dL, High LAB TRIGLY <150 mg/dL Triglyceride 146 Result Comment: <150 mg/dL, Normal 150-199 mg/dL, Borderline high 200-499 mg/dL, High >499 mg/dL, Very high LAB HDL >39 mg/dL HDL-Cholesterol Low 36 Result Comment: 40-59 mg/dL, Acceptable >59 mg/dL, High: Negative risk factor for coronary heart disease <40 mg/dL, Low: Positive risk factor for coronary heart disease LAB LDL <100 mg/dL LDL-Cholesterol 86 Result Comment: <100 mg/dL, Optimal 100-129 mg/dL, Near optimal/above optimal 130-159 mg/dL, Borderline high 160-189 mg/dL, High >189 mg/dL, Very high Secondary prevention optimal LDL Cholesterol levels are recommended to be < 70 mg/dL LAB NONHDL <130 mg/dL Non HDL Cholesterol 115 Result Comment: <130 mg/dL, Optimal 130-159 mg/dL, Near optimal/above optimal 160-189 mg/dL, Borderline high 190-219 mg/dL, High >219 mg/dL, Very high Secondary prevention optimal non HDL Cholesterol levels are recommended to be < 100 mg/dL LAB FT hrs Fasting Time 12 LAB VLDL <30 mg/dL VLDL Cholesterol 29 LAB TCHDL <5.10 TC:HDL Ratio 4.19 LAB LDLHDL <2.54 LDL:HDL Ratio 2.39 Result Comment: Reference: 1. National Cholesterol Education Program ATP III Guideline At-A-Glance Quick Desk Reference: National Heart, Lung, and Blood [place]. National Institutes of Health. 2001: NIH Publication No. 01-3305. 2. An International Atherosclerosis Society position paper: global recommendations for the management of dyslipidemia: executive summary, Atherosclerosis. 2014: 232(2):410-413. Performed By: #### BMP, LIPB, HBA1C #### [facility] [address] [place], [place] [address] HEMOGLOBIN A1C Collected: 09/20/2018 Status: F Source: [place] 8:01 AM [facility] REPOSITORY TYPE CODE TESTS RESULT OUT OF REFERENCE UNITS RANGE LAB HGBA1C 4.3-5.6 % High Hemoglobin A1c 7.1 LAB HBA0 mg/dL Est. Average Glucose 157 Result Comment: eAG: (Estimated average glucose) is a calculated value from HgbA1c and is rental representative of the average blood glucose level in the last 2-3 month period. Performed By: #### BMP, LIPB, HBA1C #### [facility] [address] [place] [address] PROGRESS Observed: 06/25/2018 Status: COMPLETED Source: [place] 2:18 PM [facility] REPOSITORY HNO ID: [id number] Author: Betty Tomas Cma Service: (none) Author Type: (none) Type: Progress Notes Filed: 06/25/2018 2:18 PM Note Text: Mailed. PROGRESS Observed: 06/25/2018 Status: COMPLETED Source: [place] 2:17 PM [facility] REPOSITORY HNO ID: [id number] Author: Betty Tomas Cotton Ginner Service: (none) Author Type: (none) Type: Progress Notes Filed: 06/25/2018 2:18 PM Note Text: Upcoming appointment 09/23 with pcp. I will send appointment reminder/dm retinal reminder and release form. Health Maintenance Due: HEPATITIS C SCREENING due on 2003 DILATED RETINAL EXAM due on 03/26/2018 INFLUENZA(1) due on 07/19/2018 CNPTOUTREACH Observed: 06/25/2018 Status: COMPLETED Source: [place] 12:00 AM [facility] REPOSITORY Patient Outreach (INTMWS) ALECIA FRANKLIN ([id number]) 1960 M Date Time Provider Department 06/25/18 BETTY TOMAS (MARLON) INTMWS During your visit today, we recorded the following information about you: Betty Tomas Cma 06/25/2018 2:18 PM Signed Upcoming appointment 09/23 with pcp. I will send appointment reminder/dm retinal reminder and release form. Health Maintenance Due: HEPATITIS C SCREENING due on 2003 DILATED RETINAL EXAM due on 03/26/2018 INFLUENZA(1) due on 07/19/2018 Betty Tomas Cma 06/25/2018 2:18 PM Signed Mailed. Allergies As of Date: 06/25/2018 (No Known Allergies) Date Reviewed: 03/18/2018 Reviewed by: Emir Diana - Fully Assessed Reason for Visit: PHMA/Care Gap Outreach [3605] Prescriptions as of 06/25/2018 Sig: SILDENAFIL (ANTIHYPERTENSIVE)* Take 2-3 tablets by mouth onc* SIMVASTATIN 20 MG TABLET take 1 tablet by mouth at bed* METFORMIN 1,000 MG TABLET take 1 tablet by mouth twice * BLOOD SUGAR DIAGNOSTIC STRIPS Test blood sugar(s) 1x daily.* ASPIRIN 81 MG TABLET,DELAYED * Take 1 tablet by mouth once d* LANCETS Test blood sugar(s) 1x daily.* TRIAMCINOLONE ACETONIDE 0.1 %* Apply 1 application to affect* * KETOCONAZOLE 2 % SHAMPOO Apply to affected area. Appl* Problem List As Of Date 06/25/2018 Noted Resolved CALCANEAL SPUR [M77.30] INVALID FOR* Seborrheic Dermatitis [L21.9] INVALID FOR* Diabetes (HCC) [E11.9] INVALID FOR* More... Hyperlipidemia with target LDL less than 70 [E7*INVALID FOR* More... Prehypertension [R03.0] INVALID FOR* More... Obesity (BMI 30-39.9) [E66.9] INVALID FOR* More... Erectile dysfunction [N52.9] INVALID FOR* Letter Text [facility] Daniel Duong MD [address], [place] [address] Dear Alecia Franklin Your health care is very important to us. Our records indicate that you may be due for a diabetic eye exam. If you have had a diabetic eye exam within the last year, please have your records sent to us so that we may update your medical records. There is a medical records of release of information included in this letter. Please take the release to your eye doctor for future appointments to have your records forwarded to us. Important facts about diabetic eye exams Diabetic retinal exams should be done yearly for all patients with a diagnosis of diabetes. Risks such as diabetic retinopathy can be reduced with blood glucose control and early detection of potential problems. Diabetic retinopathy is damage to the small blood vessels in the retina that can lead to blindness Thank you, Daniel Duong MD Letter Text Medicine [place] [facility] [address] [place] [address] Office: [phone] Daniel Duong MD REQUEST FOR EYE EXAM FINDINGS December 07, 2016 Dear eye transitional care nurse, Thank you for coordinating eye care for our mutual patient, Alecia Franklin (1960). Please fax this letter back to me with the most appropriate response selected below. Please allow the patient's signature to serve as permission to share your findings. Sincerely, Daniel Duong MD Patient Signature Date Date of eye exam: Findings Both Eyes Right Left No Retinopathy Detected Non Proliferative Retinopathy Mild Moderate Severe Proliferative Retinopathy Macular Edema Further testing and/or treatment indicated Comments: Patient is to return: Encounter Status:Closed by BETTY TOMAS CMA on 06/25/18 PROGRESS Observed: 03/18/2018 Status: COMPLETED Source: [place] 10:40 AM [facility] [place] REPOSITORY O ID: [id number] Author: Daniel Arnett Service: (none) Author Type: Physician Type: Progress Notes Filed: 03/28/2018 2:00 AM Note Text: HISTORY Alecia Franklin is a 58 year old gentleman here for yearly exam and follow up appointment. Gets episodes of feeling lethargic/tired--couple days a week. Started about 6 months ago. Sleeping okay--6 to 7 hours of sleep a night. Sometimes cannot get mind to shut mind off. Like when taking a trip. Noted cost of Cialis. Walking a lot at work. Probably 20,000 at work. Had pedometer in the past. Doing better with watching healthy diet. PAST MEDICAL HISTORY Diagnosis Date - Diabetes (HCC) 10/26/20142013, prediabetic prior to that. - Hypercholesterolemia Gets labs done through work - PLANTAR Fasciitis - Seborrheic dermatitis 10/11/2009 Current Outpatient Prescriptions: simvastatin (ZOCOR) 20 mg tablet take 1 tablet by mouth at bedtime Tadalafil (CIALIS) 20 mg tab(s) Take 1 tablet by mouth once daily. As directed metFORMIN (GLUCOPHAGE) 1,000 mg tablet take 1 tablet by mouth twice a day with food blood sugar diagnostic (ONETOUCH ULTRA TEST) test strip Test blood sugar(s) 1x daily. Dx: 250.00. Insulin: No aspirin, enteric coated (ASPIRIN, ENTERIC COATED) 81 mg EC tablet Take 1 tablet by mouth once daily. Lancets (ONE TOUCH DELICA) lancets Test blood sugar(s) 1x daily. Dx: 250.02. Insulin: No triamcinolone acetonide 0.1 % cream Apply 1 application to affected area once daily. Apply sparingly to area for rash/itching. ketoconazole 2 % TOPICAL shampoo Apply to affected area. Apply lather to affected skin for 2 to 3 minutes daily as needed. (1 bottle, not 1 ml) No current facility-administered medications for this visit. ALLERGIES No Known Allergies FAMILY HISTORY Problem Relation Age of Onset - Diabetes Mother - Heart Father mi, angioplasty - hnp neck [Other] [OTHER] Sister - Diabetes Brother [place], Stents placed 2010 - Coronary Artery Disease Brother same as one with DM - Hypertension Father same as brother with DM and CAD - prostate cancer [Other] [OTHER] Father 78+/- Social History Marital status: Spouse name: Years of education: Number of children: Social History Main Topics Smoking status: Never Smoker Smokeless tobacco: Never Used Alcohol use: Yes Comment: 2 beers a week REVIEW OF SYSTEMS Aside from above, Constitutional, HEENT, CV, PULM, GI, , PSYCH, DERM, HEM/ONC, NEURO negative. PHYSICAL EXAMINATION: Blood pressure 140/90, pulse 76, resp. rate 12, height 179.1 cm (5' 10.5), weight 104.3 kg (230 lb). Last 5 Encounter BP Readings: Date: BP: 03/18/2018 140/90 09/25/2017 128/80 03/22/2017 120/88 12/18/2016 130/80 12/04/2016 130/90 Last 5 Encounter Wt Readings: Date: Wt: 03/18/2018 104.3 kg (230 lb) 09/25/2017 102.5 kg (226 lb) 03/22/2017 103.9 kg (229 lb) 12/18/2016 111.1 kg (245 lb) 12/04/2016 108.9 kg (240 lb) 03/18/18 1022 03/18/18 1121 BP: 140/90 132/72 BP Site: Left Arm BP Position: Sitting BP Cuff Size: Large Adult Pulse: 76 Resp: 12 Weight: 104.3 kg (230 lb) Height: 179.1 cm (5' 10.5) General appearance: well appearing, in no acute distress, well-hydrated, well nourished Skin: Skin color, texture, turgor normal. No significant rashes or lesions. Head: Normal Eyes: Anicteric sclera. Pupils are equally round and reactive to light. Extraocular movements are intact. Ears: External ears normal. Canals clear. TM's unremarkable. Nose/Sinuses: negative Oropharynx: Lips, mucosa, and tongue normal. Teeth and gums normal. Oropharynx normal. Neck: Neck supple, no adenopathy; thyroid symmetric, normal size, no bruits. Lungs: Lungs clear to auscultation Heart: negative. RRR without murmur, gallop, or rubs. Occasional ectopy. Abdomen: Abdomen soft, non-tender. Bowel sounds normal. No masses, organomegaly Extremities: Extremities normal. No deformities, edema, or skin discoloration. Good capillary refill. Musculoskeletal: grossly normal Peripheral pulses: Normal Neuro: Gait normal. Reflexes normal and symmetric. Sensation grossly intact. No gross focal neurological deficits. Feet:Shoes and socks removed, No deformities, ulcers, calluses and sensitive to 10 gm monofilament Labs reviewed. Component Latest Ref Rng AND Units 03/16/2017 09/21/2017 03/15/2018 Protein, Total 6.3 - 8.0 g/dL 6.9 Albumin 3.9 - 4.9 g/dL 4.3 Calcium 8.5 - 10.2 mg/dL 8.9 9.8 9.1 Bilirubin, Total 0.2 - 1.3 mg/dL 0.5 Alkaline Phosphatase 36 - 108 U/L 80 AST 14 - 40 U/L 28 Glucose 74 - 99 mg/dL 129 (H) 111 (H) 161 (H) BUN 9 - 24 mg/dL 22 20 22 Creatinine 0.73 - 1.22 mg/dL 0.94 1.03 0.92 Sodium 136 - 144 mmol/L 141 139 138 Potassium 3.7 - 5.1 mmol/L 4.6 4.4 4.8 Chloride 97 - 105 mmol/L 104 100 101 CO2 22 - 30 mmol/L 23 28 27 Anion Gap 9 - 18 mmol/L 14 11 10 ALT 10 - 54 U/L 31 eGFR- >60 >60 >60 eGFR-All Other Races . >60 >60 >60 Triglyceride <150 mg/dL 128 120 166 (H) Cholesterol, Total <200 mg/dL 141 147 165 HDL Cholesterol >39 mg/dL 33 (L) 38 (L) 38 (L) VLDL Cholesterol <30 mg/dL 26 24 33 (H) LDL Cholesterol <100 mg/dL 82 85 94 Fasting Time hrs 10 12 12 TC:HDL Ratio <5.10 4.27 3.87 4.34 LDL:HDL Ratio <2.54 2.48 2.24 2.47 Non HDL Cholesterol <130 mg/dL 108 109 127 Creatinine, Ur Random (UCRR) 20 - 300 mg/dL 110.2 99.0 Albumin, Urine Random 0.0 - 23.0 mg/L 24.2 (H) 15.4 Albumin/Creat Ratio 0 - 30 mg/g 22 16 Hemoglobin A1C 4.3 - 5.6 % 6.7 (H) 6.5 (H) 6.7 (H) Estimated Average Glucose mg/dL 146 140 146 PSA 0.00 - 2.59 ng/mL 0.60 ASSESSMENT AND PLAN See diagnoses and orders Encounter Diagnosis ICD-10-CM 1. Routine medical exam Z00.00 2. Type 2 diabetes mellitus without complication, without long-term current use of insulin (HCC) E11.9 HGB A1C BASIC METABOLIC PNL 3. Hyperlipidemia with target LDL less than 70 E78.5 LIPID PANEL BASIC 4. Obesity (BMI 30-39.9) E66.9 5. Erectile dysfunction, unspecified erectile dysfunction type N52.9 sildenafil, antihypertensive, (REVATIO) 20 mg tablet Will work on diet and exercise to reverse DM to see if will be able to keep controlled without meds and also no longer need SHAUNA-I. Above issues addressed with patient. Patient involved in shared decision making for management of her medical issues. History and medications reviewed. Epic updated as needed Refills taken care of and meds adjusted as indicated after reviewed history, exam and labs. Health Maintenance reviewed. Updated record and/or ordered tests as recorded. Encouraged on efforts at healthy diet and regular exercise and adequate sleep. Needs to keep working on diet and exercise with lifestyle changes for effective weight loss. Discussed that ED could improve with better diet, regular exercise and weight loss. Can try med as above. Further evaluation and treatment as indicated. Daniel Arnett MD CNOV Observed: 03/18/2018 Status: COMPLETED Source: [place] 10:20 AM [facility] REPOSITORY Office Visit (INTMWS) TRALECIA GILL ([id number]) 1960 M Date Time Provider Department 03/18/18 10:20 AM DANIEL ARNETT INTMWS During your visit today, we recorded the following information about you: Pulse Respiration Blood pressure Weight 76/minute 12/minute 132/72 104.3 kg Height 1.791 m Daniel Arnett 03/28/2018 2:00 AM Signed HISTORY Alecia Lu Rigoberto is a 58 year old gentleman here for yearly exam and follow up appointment. Gets episodes of feeling lethargic/tired--couple days a week. Started about 6 months ago. Sleeping okay--6 to 7 hours of sleep a night. Sometimes cannot get mind to shut mind off. Like when taking a trip. Noted cost of Cialis. Walking a lot at work. Probably 20,000 at work. Had pedometer in the past. Doing better with watching healthy diet. PAST MEDICAL HISTORY Diagnosis Date - Diabetes (HCC) 10/26/20142013, prediabetic prior to that. - Hypercholesterolemia Gets labs done through work - PLANTAR Fasciitis - Seborrheic dermatitis 10/11/2009 Current Outpatient Prescriptions: simvastatin (ZOCOR) 20 mg tablet take 1 tablet by mouth at bedtime Tadalafil (CIALIS) 20 mg tab(s) Take 1 tablet by mouth once daily. As directed metFORMIN (GLUCOPHAGE) 1,000 mg tablet take 1 tablet by mouth twice a day with food blood sugar diagnostic (ONETOUCH ULTRA TEST) test strip Test blood sugar(s) 1x daily. Dx: 250.00. Insulin: No aspirin, enteric coated (ASPIRIN, ENTERIC COATED) 81 mg EC tablet Take 1 tablet by mouth once daily. Lancets (ONE TOUCH DELICA) lancets Test blood sugar(s) 1x daily. Dx: 250.02. Insulin: No triamcinolone acetonide 0.1 % cream Apply 1 application to affected area once daily. Apply sparingly to area for rash/itching. ketoconazole 2 % TOPICAL shampoo Apply to affected area. Apply lather to affected skin for 2 to 3 minutes daily as needed. (1 bottle, not 1 ml) No current facility-administered medications for this visit. ALLERGIES No Known Allergies FAMILY HISTORY Problem Relation Age of Onset - Diabetes Mother - Heart Father mi, angioplasty - hnp neck [Other] [OTHER] Sister - Diabetes Brother [place], Stents placed 2010 - Coronary Artery Disease Brother same as one with DM - Hypertension Father same as brother with DM and CAD - prostate cancer [Other] [OTHER] Father 78+/- Social History Marital status: Spouse name: Years of education: Number of children: Social History Main Topics Smoking status: Never Smoker Smokeless tobacco: Never Used Alcohol use: Yes Comment: 2 beers a week REVIEW OF SYSTEMS Aside from above, Constitutional, HEENT, CV, PULM, GI, , PSYCH, DERM, HEM/ONC, NEURO negative. PHYSICAL EXAMINATION: Blood pressure 140/90, pulse 76, resp. rate 12, height 179.1 cm (5' 10.5), weight 104.3 kg (230 lb). Last 5 Encounter BP Readings: Date: BP: 03/18/2018 140/90 09/25/2017 128/80 03/22/2017 120/88 12/18/2016 130/80 12/04/2016 130/90 Last 5 Encounter Wt Readings: Date: Wt: 03/18/2018 104.3 kg (230 lb) 09/25/2017 102.5 kg (226 lb) 03/22/2017 103.9 kg (229 lb) 12/18/2016 111.1 kg (245 lb) 12/04/2016 108.9 kg (240 lb) 03/18/18 1022 03/18/18 1121 BP: 140/90 132/72 BP Site: Left Arm BP Position: Sitting BP Cuff Size: Large Adult Pulse: 76 Resp: 12 Weight: 104.3 kg (230 lb) Height: 179.1 cm (5' 10.5) General appearance: well appearing, in no acute distress, well-hydrated, well nourished Skin: Skin color, texture, turgor normal. No significant rashes or lesions. Head: Normal Eyes: Anicteric sclera. Pupils are equally round and reactive to light. Extraocular movements are intact. Ears: External ears normal. Canals clear. TM's unremarkable. Nose/Sinuses: negative Oropharynx: Lips, mucosa, and tongue normal. Teeth and gums normal. Oropharynx normal. Neck: Neck supple, no adenopathy; thyroid symmetric, normal size, no bruits. Lungs: Lungs clear to auscultation Heart: negative. RRR without murmur, gallop, or rubs. Occasional ectopy. Abdomen: Abdomen soft, non-tender. Bowel sounds normal. No masses, organomegaly Extremities: Extremities normal. No deformities, edema, or skin discoloration. Good capillary refill. Musculoskeletal: grossly normal Peripheral pulses: Normal Neuro: Gait normal. Reflexes normal and symmetric. Sensation grossly intact. No gross focal neurological deficits. Feet:Shoes and socks removed, No deformities, ulcers, calluses and sensitive to 10 gm monofilament Labs reviewed. Component Latest Ref Rng AND Units 03/16/2017 09/21/2017 03/15/2018 Protein, Total 6.3 - 8.0 g/dL 6.9 Albumin 3.9 - 4.9 g/dL 4.3 Calcium 8.5 - 10.2 mg/dL 8.9 9.8 9.1 Bilirubin, Total 0.2 - 1.3 mg/dL 0.5 Alkaline Phosphatase 36 - 108 U/L 80 AST 14 - 40 U/L 28 Glucose 74 - 99 mg/dL 129 (H) 111 (H) 161 (H) BUN 9 - 24 mg/dL 22 20 22 Creatinine 0.73 - 1.22 mg/dL 0.94 1.03 0.92 Sodium 136 - 144 mmol/L 141 139 138 Potassium 3.7 - 5.1 mmol/L 4.6 4.4 4.8 Chloride 97 - 105 mmol/L 104 100 101 CO2 22 - 30 mmol/L 23 28 27 Anion Gap 9 - 18 mmol/L 14 11 10 ALT 10 - 54 U/L 31 eGFR- >60 >60 >60 eGFR-All Other Races . >60 >60 >60 Triglyceride <150 mg/dL 128 120 166 (H) Cholesterol, Total <200 mg/dL 141 147 165 HDL Cholesterol >39 mg/dL 33 (L) 38 (L) 38 (L) VLDL Cholesterol <30 mg/dL 26 24 33 (H) LDL Cholesterol <100 mg/dL 82 85 94 Fasting Time hrs 10 12 12 TC:HDL Ratio <5.10 4.27 3.87 4.34 LDL:HDL Ratio <2.54 2.48 2.24 2.47 Non HDL Cholesterol <130 mg/dL 108 109 127 Creatinine, Ur Random (UCRR) 20 - 300 mg/dL 110.2 99.0 Albumin, Urine Random 0.0 - 23.0 mg/L 24.2 (H) 15.4 Albumin/Creat Ratio 0 - 30 mg/g 22 16 Hemoglobin A1C 4.3 - 5.6 % 6.7 (H) 6.5 (H) 6.7 (H) Estimated Average Glucose mg/dL 146 140 146 PSA 0.00 - 2.59 ng/mL 0.60 ASSESSMENT AND PLAN See diagnoses and orders Encounter Diagnosis ICD-10-CM 1. Routine medical exam Z00.00 2. Type 2 diabetes mellitus without complication, without long-term current use of insulin (HCC) E11.9 HGB A1C BASIC METABOLIC PNL 3. Hyperlipidemia with target LDL less than 70 E78.5 LIPID PANEL BASIC 4. Obesity (BMI 30-39.9) E66.9 5. Erectile dysfunction, unspecified erectile dysfunction type N52.9 sildenafil, antihypertensive, (REVATIO) 20 mg tablet Will work on diet and exercise to reverse DM to see if will be able to keep controlled without meds and also no longer need SHAUNA-I. Above issues addressed with patient. Patient involved in shared decision making for management of her medical issues. History and medications reviewed. Epic updated as needed Refills taken care of and meds adjusted as indicated after reviewed history, exam and labs. Health Maintenance reviewed. Updated record and/or ordered tests as recorded. Encouraged on efforts at healthy diet and regular exercise and adequate sleep. Needs to keep working on diet and exercise with lifestyle changes for effective weight loss. Discussed that ED could improve with better diet, regular exercise and weight loss. Can try med as above. Further evaluation and treatment as indicated. MD Hope Dickson Liza D 03/18/2018 10:55 AM Signed Sleep Hygiene and Good Sleep Habits Establish a regular routine that includes going to bed and getting up at the same time every day, even on weekends. Maintaining a consistent sleep-wake cycle is the yates to better health overall. Get an adequate amount of sleep every night. Determine the amount of sleep you need by keeping track of how long you sleep without using an alarm clock for a week. Maintain this personal sleep requirement. Go to bed when you are sleepy. If you have difficulty falling asleep or wake up shortly after going to sleep, leave the bedroom and read quietly or do some other relaxing activity. Avoid bright lights as this can cue your wake cycle. Develop sleep rituals before going to bed. Do the same things in the same order before going to bed to cue your body to slow down and relax. Avoid stress and worries at bedtime. Address tomorrow's activities, concerns, or distractions earlier in the day. Certain activities, such as listening to soft music, reading, or taking a warm bath, can help you wind down. Use your bed for sleeping and sex only. Often, doing other activities in bed like watching TV, paying bills, or working only serve to initiate worries and concerns. Let your mind associate the bed with sleeping, relaxing, and pleasure. Avoid heavy meals late in the evening; similarly, avoid going to bed hungry. A light snack, especially dairy foods, can help you sleep. Reduce your intake of caffeine and nicotine 4-6 hours before going to sleep. Stimulants interfere with your ability to fall asleep and progress into deep sleep. 200mg caffeine (a large Starbucks coffee) taken at 8 AM will impair the sleep architecture that night. Avoid alcohol 4-6 hours before bedtime. As a depressant that slows brain activity, alcohol may initially make you tired, but you will end up having fragmented sleep. In addition, being tired intensifies the effects of alcohol. Alcohol also aggravates snoring and sleep apnea particularly in men. Exercise regularly. Regular exercise, even for 20 minutes, 3 times a week, promotes deep sleep. Don't nap for more than 30 minutes or after 3 PM. Avoiding naps all together will ensure that you are tired at night. Longer naps disrupt the body's ability to stay asleep. Maintain a dark, quiet room to sleep in at a temperature with which you are comfortable. Use sleeping aids conservatively, and avoid using them for more than one or two nights per month. Avoid sleeping pills altogether if you have obstructive sleep apnea because it can be a deadly combination. Referring Provider: SELF [200] Allergies As of Date: 03/18/2018 (No Known Allergies) Date Reviewed: 03/18/2018 Reviewed by: Emir Diana - Fully Assessed Reason for Visit: Yearly Exam [187] Primary Visit Diagnosis:Routine medical exam [Z00.00] Other Visit Diagnoses:Type 2 diabetes mellitus without complication, without long-term current use of insulin (HCC) [E11.9] Hyperlipidemia with target LDL less than 70 [E78.5] Obesity (BMI 30-39.9) [E66.9] Erectile dysfunction, unspecified erectile dysfunction type [N52.9] Order(s):sildenafil, antihypertensive, (REVATIO) 20 mg tabletTake 2-3 tablets by mouth once daily as needed.Disp: 20 tabletRfl: 1 HGB A1C [FCIOA1L] Order #: [id number] FUTURE BASIC METABOLIC PNL [SQBMP] Order #: [id number] FUTURE LIPID PANEL BASIC [SQLIPB] Order #: [id number] FUTURE Prescriptions as of 03/18/2018 Sig: SIMVASTATIN 20 MG TABLET take 1 tablet by mouth at bed* METFORMIN 1,000 MG TABLET take 1 tablet by mouth twice * BLOOD SUGAR DIAGNOSTIC STRIPS Test blood sugar(s) 1x daily.* ASPIRIN 81 MG TABLET,DELAYED * Take 1 tablet by mouth once d* LANCETS Test blood sugar(s) 1x daily.* TRIAMCINOLONE ACETONIDE 0.1 %* Apply 1 application to affect* * KETOCONAZOLE 2 % SHAMPOO Apply to affected area. Appl* SILDENAFIL (ANTIHYPERTENSIVE)* Take 2-3 tablets by mouth onc* Medication notes this encounter TADALAFIL 20 MG TABLET >> Emir Diana 03/18/2018 10:20 AM >> EMIR DIANA galina March 18, 2018 10:20 AM Not using d/t insurance did not cover. >> Daniel Arnett 03/18/2018 10:57 AM >> DANIEL ARNETT MD March 18, 2018 10:57 AM never filled Problem List As Of Date 03/18/2018 Noted Resolved CALCANEAL SPUR [M77.30] INVALID FOR* Seborrheic Dermatitis [L21.9] INVALID FOR* Diabetes (HCC) [E11.9] INVALID FOR* More... Hyperlipidemia with target LDL less than 70 [E7*INVALID FOR* More... Prehypertension [R03.0] INVALID FOR* More... Obesity (BMI 30-39.9) [E66.9] INVALID FOR* More... Other instructions from your clinician: Sleep Hygiene and Good Sleep Habits Establish a regular routine that includes going to bed and getting up at the same time every day, even on weekends. Maintaining a consistent sleep-wake cycle is the yates to better health overall. Get an adequate amount of sleep every night. Determine the amount of sleep you need by keeping track of how long you sleep without using an alarm clock for a week. Maintain this personal sleep requirement. Go to bed when you are sleepy. If you have difficulty falling asleep or wake up shortly after going to sleep, leave the bedroom and read quietly or do some other relaxing activity. Avoid bright lights as this can cue your wake cycle. Develop sleep rituals before going to bed. Do the same things in the same order before going to bed to cue your body to slow down and relax. Avoid stress and worries at bedtime. Address tomorrow's activities, concerns, or distractions earlier in the day. Certain activities, such as listening to soft music, reading, or taking a warm bath, can help you wind down. Use your bed for sleeping and sex only. Often, doing other activities in bed like watching TV, paying bills, or working only serve to initiate worries and concerns. Let your mind associate the bed with sleeping, relaxing, and pleasure. Avoid heavy meals late in the evening; similarly, avoid going to bed hungry. A light snack, especially dairy foods, can help you sleep. Reduce your intake of caffeine and nicotine 4-6 hours before going to sleep. Stimulants interfere with your ability to fall asleep and progress into deep sleep. 200mg caffeine (a large Starbucks coffee) taken at 8 AM will impair the sleep architecture that night. Avoid alcohol 4-6 hours before bedtime. As a depressant that slows brain activity, alcohol may initially make you tired, but you will end up having fragmented sleep. In addition, being tired intensifies the effects of alcohol. Alcohol also aggravates snoring and sleep apnea particularly in men. Exercise regularly. Regular exercise, even for 20 minutes, 3 times a week, promotes deep sleep. Don't nap for more than 30 minutes or after 3 PM. Avoiding naps all together will ensure that you are tired at night. Longer naps disrupt the body's ability to stay asleep. Maintain a dark, quiet room to sleep in at a temperature with which you are comfortable. Use sleeping aids conservatively, and avoid using them for more than one or two nights per month. Avoid sleeping pills altogether if you have obstructive sleep apnea because it can be a deadly combination. Prescriptions ordered this encounter Disp Refills Start End SILDENAFIL (ANTIHYPERTENSIVE) 20 MG * 20 t* 1 03/18/2018 Route: ORAL Sig: Take 2-3 tablets by mouth once daily as needed. Medications Discontinued During This Encounter Tadalafil (CIALIS) 20 mg tab(s) 10 t* 11 01/27/2018 03/18/2018 Route: ORAL Sig: Take 1 tablet by mouth once daily. As directed Disc: Cost of medication Disposition: Return in about 6 months (around 09/18/2018) for 6 months follow up, With labs prior. Follow-up and Disposition History Recorded Encounter Status:Closed by DANIEL ARNETT MD on 03/28/18 COMP METABOLIC PANEL Collected: 03/15/2018 Status: F Source: [place] 8:50 AM [facility] REPOSITORY TYPE CODE TESTS RESULT OUT OF REFERENCE UNITS RANGE LAB TP 6.3-8.0 g/dL Protein, Total 6.9 LAB ALB 3.9-4.9 g/dL Albumin 4.3 LAB CA 8.5-10.2 mg/dL Calcium, Total 9.1 LAB TBIL 0.2-1.3 mg/dL Bilirubin, Total 0.5 LAB ALKP 36-108 U/L Alkaline Phosphatase 80 LAB AST 14-40 U/L AST 28 LAB GLU 74-99 mg/dL Glucose High 161 Result Comment: The [place] Diabetes Association (ADA) provides guidance for cutoff values for fasting glucose and random glucose. The ADA defines fasting as no caloric intake for at least 8 hours. Fas ting plasma glucose results between 100 to 125 mg/dL indicate increased risk for diabetes (prediabetes). Fasting plasma glucose results greater than or equal to 126 mg/dL meet the criteria for diagnosis of diabetes. In the absence of unequivocal hyperglycemia, results should be confirmed by repeat testing. In a patient with classic symptoms of hyperglycemia or hyperglycemic crisis, random plasma glucose results greater than or equal to 200 mg/dL meet the criteria for diagnosis of diabetes. Reference: Standards of Medical Care in Diabetes 2016, [place] Diabetes Association. Diabetes Care. 2016.39(Suppl 1). LAB BUN 9-24 mg/dL BUN 22 LAB CRET 0.73-1.22 mg/dL Creatinine 0.92 LAB NA 136-144 mmol/L Sodium 138 LAB K 3.7-5.1 mmol/L Potassium 4.8 LAB CL 97-105 mmol/L Chloride 101 LAB CO2 22-30 mmol/L CO2 27 LAB AGAP 9-18 mmol/L Anion Gap 10 LAB ALT 10-54 U/L ALT 31 LAB GFRAA eGFR- Amer. >60 LAB GFRNAA . eGFR-All Other Races >60 Result Comment: eGFR (Estimated GFR) Units of measure: mL/min/1.73 meters squared eGFR is derived from the reexpressed MDRD Study equation using the following parameters: serum creatinine, age, gender and race. The creatinine assay has been calibrated to be traceable to IDMS. An eGFR <60 mL/min/1.73m2 for >3 months is consistent with chronic kidney disease. Refer to KDOQI guidelines for clinical interpretation. In patients with unstable renal function, e.g. those with acute kidney injury, the eGFR may not accurately reflect actual GFR. Performed By: #### CMP, LIPB, HBA1C #### [facility] [address] [place] [id number] LIPID PANEL, BASIC Collected: 03/15/2018 Status: F Source: [place] 8:50 AM [facility] REPOSITORY TYPE CODE TESTS RESULT OUT OF REFERENCE UNITS RANGE LAB CHOL <200 mg/dL Cholesterol 165 Result Comment: <200 mg/dL, Desirable 200-239 mg/dL, Borderline high >239 mg/dL, High LAB TRIGLY <150 mg/dL Triglyceride High 166 Result Comment: <150 mg/dL, Normal 150-199 mg/dL, Borderline high 200-499 mg/dL, High >499 mg/dL, Very high LAB HDL >39 mg/dL HDL-Cholesterol Low 38 Result Comment: 40-59 mg/dL, Acceptable >59 mg/dL, High: Negative risk factor for coronary heart disease <40 mg/dL, Low: Positive risk factor for coronary heart disease LAB LDL <100 mg/dL LDL-Cholesterol 94 Result Comment: <100 mg/dL, Optimal 100-129 mg/dL, Near optimal/above optimal 130-159 mg/dL, Borderline high 160-189 mg/dL, High >189 mg/dL, Very high Secondary prevention optimal LDL Cholesterol levels are recommended to be < 70 mg/dL LAB NONHDL <130 mg/dL Non HDL Cholesterol 127 Result Comment: <130 mg/dL, Optimal 130-159 mg/dL, Near optimal/above optimal 160-189 mg/dL, Borderline high 190-219 mg/dL, High >219 mg/dL, Very high Secondary prevention optimal non HDL Cholesterol levels are recommended to be < 100 mg/dL LAB FT hrs Fasting Time 12 LAB VLDL <30 mg/dL High VLDL Cholesterol 33 LAB TCHDL <5.10 TC:HDL Ratio 4.34 LAB LDLHDL <2.54 LDL:HDL Ratio 2.47 Result Comment: Reference: 1. National Cholesterol Education Program ATP III Guideline At-A-Glance Quick Desk Reference: National Heart, Lung, and Blood [place]. National Institutes of Health. 2001: NIH Publication No. 01-3305. 2. An International Atherosclerosis Society position paper: global recommendations for the management of dyslipidemia: executive summary, Atherosclerosis. 2014: 232(2):410-413. Performed By: #### CMP, LIPB, HBA1C #### [facility] [address], [place] [address] HEMOGLOBIN A1C Collected: 03/15/2018 Status: F Source: [place] 8:50 AM [facility] REPOSITORY TYPE CODE TESTS RESULT OUT OF REFERENCE UNITS RANGE LAB HGBA1C 4.3-5.6 % High Hemoglobin A1c 6.7 LAB HBA0 mg/dL Est. Average Glucose 146 Result Comment: eAG: (Estimated average glucose) is a calculated value from HgbA1c and is rental representative of the average blood glucose level in the last 2-3 month period. Performed By: #### CMP, LIPB, HBA1C #### [facility] [address] [place], [place] [id number] ALBUMIN/CREAT RATIO Collected: 03/15/2018 Status: F Source: [place] 8:50 AM [facility] REPOSITORY TYPE CODE TESTS RESULT OUT OF REFERENCE UNITS RANGE LAB UCRR 20-300 mg/dL Creatinine,Ur 99.0 ine,Ran LAB UALBR 0.0-23.0 mg/L Albumin Urine 15.4 Random LAB UALBCR 0-30 mg/g Albumin/Creat 16 Ratio Result Comment: 30 to 300 mg/g indicates an increased risk for diabetic nephropathy. Greater than 300 mg/g is consistent with clinical nephropathy. (Am J Kidney Disease 1995, 25:107) Performed By: #### UACR #### [facility] [address], [place] [address] ALLERGIES ALLERGIES DATE TYPE / CODE NAME / CODE REACTION SEVERITY SOURCE 12/08/2018 Drug No Known Unknown [facility] Allergy/416 Allergies/[id number] Hospital [id number](SNOM 0388(RXNORM) Repository ED CT) Drug NO KNOWN [facility] Class/33698 ALLERGIES [address] [place] 1003(SNOMED Repository CT) ENCOUNTERS ENCOUNTERS ADMIT/DISCHARGE ACCOUNT ADMITTING ENCOUNTER LOCATION SOURCE NUMBER CLASS 12/10/2018 [id number] [facility] Repository 10/06/2018/10/14/20 [id number] Ambulatory [address] Repository 09/23/2018/10/06/20 [id number] Ambulatory [address] Repository 09/20/2018/09/20/20 [id number] Ambulatory [address] Repository 03/18/2018/03/31/20 [id number] Ambulatory [address] Repository 03/15/2018/03/15/20 [id number] Ambulatory [address] Repository PAYERS PAYERS ENCOUNTER GUARANTOR PAYER SUBSCRIBER SOURCE 12/10/2018 ALECIA Lu Primary ALECIA Avalos [id number] [place] Insurance:ANTHEMPolic HURSTDOB: [facility] ROBERT MADISON sanket [facility]: [id number] [id number]: [id number] Repository Date:[id number] [id number], [place] [address]CX: 12/10/2018 Secondary NOT GIVENUNK Robbie Insurance:SELF PAY [facility]: Effective Repository Date:2018-10-06
== END 2018-12-15 15:15 | disposition home or self-care (01) ==
LOC: SDC 11:13 → AC 11:13
PROVIDERS: Anesthesiology; Family Provider Internal Medicine; PCP Internal Medicine; Referring Provider Surgery; Visit Provider Surgery
PROC: (CPT 49585; principal; 2018-12-15 12:20)
DX: K42.9 Umbilical hernia without obstruction or gangrene (principal); E11.9 Type 2 diabetes mellitus without complications; E78.00 Pure hypercholesterolemia, unspecified; E66.09 Other obesity due to excess calories; Z68.32 Body mass index [BMI] 32.0-32.9, adult; Z79.84 Long term (current) use of oral hypoglycemic drugs; Z79.82 Long term (current) use of aspirin; Z79.899 Other long term (current) drug therapy
CPT/HCPCS: 49585; 36415; 80048; 82962; 93005; J7050; J7120

== ENCOUNTER → 2023-01-03 | Outpatient (CLI) | payer BC, SELFPAY ==
[2023-01-03 09:57] LABS: Hematocrit 51.3 % (40-54); Hemoglobin 17.6 g/dL (13.0-16.5); Mean Corp Hgb Conc 34.3 g/dL (32-36); Mean Corpuscular Volume 84.5 fL (80-94); Platelet Count 188 K/mm3 (150-450); RBC Distribution Width CV 12.2 % (11.6-14.6); RBC Distribution Width SD 37.1 fl (35.1-43.9); Red Blood Count 6.07 M/mm3 (4.6-6.2); White Blood Count 6.6 K/mm3 (4.4-11.0)
[2023-01-03 10:19] LABS: Anion Gap 7 (5-15); BUN 29 mg/dL (7-18); Calcium,Total 9.1 mg/dL (8.5-10.1); Chloride 105 mmol/L (98-107); EST Glomerular Filtration Rate 80 mL/min (>60); Est Glom Filt Rate - Afr Amer 97 mL/min (>60); Glucose 188 mg/dL (74-106); Potassium 4.3 mmol/L (3.5-5.1); Sodium Level 138 mmol/L (136-145)
[2023-01-03 10:20] LABS: Hemoglobin A1c 8.2 % (3.8-5.6)
== END | disposition home or self-care (01) ==
LOC: PSN 09:04
PROVIDERS: PCP Internal Medicine; Referring Provider Physician Assistant; Visit Provider Physician Assistant
DX: Z01.810 Encounter for preprocedural cardiovascular examination (principal)
CPT/HCPCS: 36415; 80048; 83036; 85027; 93005